=== PATIENT | female | born 1980 | race Caucasian/White ===

== ENCOUNTER 2020-07-20 00:17 | Emergency (ER) | payer MEDICARE, MEDICAID, SELFPAY ==
--- NOTE | 2020-07-20 00:23 | ECG_ITS ---
Measurements Intervals [place] Rate: 97 P: 41 GA: 138 QRS: 36 QRSD: 87 T: 89 QT: 342 QTc: 436 Interpretive Statements SINUS RHYTHM NONSPECIFIC ST & T-WAVE ABNORMALITY- HIGH LATERAL LEADS BASELINE ARTIFACT- I, II, III, AVR, AVL, AVF BORDERLINE ECG Electronically Signed On 07-20-2020 7:07:06 CDT by El Nicole D.O.
--- NOTE | 2020-07-20 00:24 | ED.PSYCH ---
HPI - Psych General Chief Complaint: Anxiety Stated Complaint: panic attak Source: patient Mode of arrival: ambulatory Limitations: no limitations History of Present Illness HPI Narrative: this is 40-year-old female a history of depression and history of anxiety with panic attacks currently having some shortness of breath and chest tightness similar to her previous panic attacks. Patient states that she recently started a new control approximately 2 weeks ago and since then she has had increasing panic attacks that have progressively increased to the point where she presented to the emergency department. Currently there is no fever chills no abdominal pain there is some nausea with no vomiting no headache no cough for congestion. Onset (ago): day(s) Duration: intermittent and getting worse History of same: Yes Relieving factors: none and medication Exacerbating factors: medication Context: new medication(s) Associated psychiatric symptoms: depression Associated symptoms: nausea Treatments prior to arrival: none Related Data Home Medications Medication Instructions Recorded Confirmed aripiprazole 10 mg PO DAILY 09/30/19 07/20/20 duloxetine 20 mg capsule,delayed 20 mg PO BID 07/04/20 07/20/20 release fexofenadine 60 mg tablet 60 mg PO Q12H 07/04/20 07/20/20 norgestimate-ethinyl estradiol 1 tablet PO DAILY 07/20/20 07/20/20 [Rau-To-Omobzc] Allergies Allergy/AdvReac Type Severity Reaction Status Date / Time gabapentin AdvReac Unknown SEVERE Verified 07/04/20 08:57 VOMITING Review of Systems Review of Systems: All systems reviewed & are unremarkable except as noted in HPI and below PMFSH Past Medical History Medical History Anxiety Depression Seasonal allergies Surgical History Surgical History History of arthroplasty of right knee History of total left hip arthroplasty Hx of appendectomy Family History Family History Grandparent Breast cancer Social History Social History Smoking status: Never smoker Alcohol intake: never Substance use: never Exam Const: General: no acute distress and alert Orientation/consciousness: patient oriented x3 HENMT: Head: normal to inspection Eyes: Conjunctivae: conjunctivae normal Pupils: Equal, round and reactive pupils present Neck: Neck: normal visual inspection, no lymphadenopathy and no meningeal signs Chest: Chest palpation & inspection: normal inspection of the chest Resp: Effort & Inspection: normal respiratory effort Auscultation: clear to auscultation bilaterally Cardio: Rate: regular rate Rhythm: regular rhythm GI: GI Palp: Yes Soft to palpation : General: Yes no CVA tenderness Back/Spine/Pelvis: Back: no CVA tenderness Skin: General skin exam: normal color Rashes: no rashes Neuro: General: patient oriented x3, moves all extremities, no meningeal signs and no focal motor deficits Extrem: General: normal to inspection and no pedal edema Psych: Appearance: grossly normal, well kempt and other ( Anxious) Course Course Emergency Course: perform EKG, and will administer 0.5 mg of Xanax of her current anxiety/panic attacks. Critical Care Time Critical Care Time Critical Care Time: No Discharge Plan Discharge Clinical Impression: Panic disorder, Acute anxiety Patient Disposition: Home, Self-Care Condition: Stable Instructions: Antibiotic Form, Panic Disorder (ED), Anxiety (ED) Additional Instructions: Follow-up with primary care provider within 1 week for further evaluation and treatment. 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 Take medicine as prescribed. Prescriptions: New
[2020-07-20] MEDS: ALPRAZolam (*CRX) 0.5 MG TABLET PO (00:27)
[2020-07-20 00:28] VITALS: BP 170/100; PULSE 98; RESP 18; TEMP 36.2; O2SAT 97
[2020-07-20 00:39] VITALS: BP 130/87; PULSE 87; RESP 20; TEMP 36.6; O2SAT 98
== END 2020-07-20 00:46 | disposition home or self-care (01) ==
PROVIDERS: Emergency Provider Emergency Medicine; PCP Internal Medicine
DX: F41.0 Panic disorder [episodic paroxysmal anxiety] (principal); F41.9 Anxiety disorder, unspecified
CPT/HCPCS: 93005; 99283; A9270